=== PATIENT | female | born 1990 | race Caucasian/White ===

== ENCOUNTER 2022-11-30 15:02 | Outpatient (CLI) | payer OTHER, SELFPAY ==
--- NOTE | 2022-11-30 15:00 | CRLHL7_ITS ---
For Patients: As a result of the Cures Act, medical imaging exams and procedure reports are released immediately into your electronic medical record. You may view this report before your referring provider. If you have questions, please contact your health care provider. INDICATION: First trimester scan, establish dates. COMPARISON: None. TECHNIQUE: Real-time damon-scale imaging of the pelvis was performed. FINDINGS: Sonographic imaging demonstrates a single living intrauterine gestation. The embryo demonstrates a regular cardiac rate measuring 155 beats per minute. The embryo`s crown-rump length measurement of 1.3 cm corresponds to a gestational age of 7 weeks 4 days with a sonographic due date of July 15, 2023. There is a normal-appearing yolk sac measuring 3.0 mm. There are no gross abnormalities noted within the embryo at this early state of development. The placenta has not yet developed. The gestational sac has a normal appearance and there is no evidence of a perigestational hemorrhage. The amount of fluid within the sac appears appropriate for gestational age. The cervix is closed. The myometrium appears normal. The ovaries are of normal size. The right ovary measures 3.6 x 2.2 x 2.1 cm and contains a small corpus luteum cyst of . The left ovary measures 2.9 x 1.7 x 2.4 cm. There are no suspicious fluid collections noted in the cul-de-sac. IMPRESSION: Normal first trimester OB ultrasound exam. Gestational age calculated at 7 weeks 4 days with a sonographic due date of July 15, 2023. Dictated by Vinod Hull MD @ 11/30/2022 3:57:50 PM (Electronically Signed)
== END 2022-11-30 15:03 | disposition home or self-care (01) ==
LOC: US 15:03
PROVIDERS: PCP Obstetrics & Gynecology; Visit Provider Registered Nurse
DX: Z34.91 Encounter for supervision of normal pregnancy, unspecified, first trimester (principal); Z3A.08 8 weeks gestation of pregnancy
CPT/HCPCS: 76817

== ENCOUNTER 2022-11-30 15:21 | Outpatient (CLI) | payer OTHER, SELFPAY | END 2022-11-30 15:22 | disposition home or self-care (01) | PROVIDERS: PCP Obstetrics & Gynecology; Visit Provider Registered Nurse | DX: Z34.91 Encounter for supervision of normal pregnancy, unspecified, first trimester (principal); Z3A.08 8 weeks gestation of pregnancy | CPT/HCPCS: 86592; 86703; 86762; 86787; 86803; 86850; 86900; 86901; 87086; 87340; 87491; 87591 ==

== ENCOUNTER 2023-03-01 09:10 | Outpatient (CLI) | payer OTHER, SELFPAY ==
--- NOTE | 2023-03-01 09:15 | CRLHL7_ITS ---
For Patients: As a result of the Century Cures Act, medical imaging exams and procedure reports are released immediately into your electronic medical record. You may view this report before your referring provider. If you have questions, please contact your health care provider. INDICATION: Evaluate anatomy. COMPARISON: November 30, 2022 TECHNIQUE: Real time damon scale imaging of the fetus was performed. FINDINGS: Sonographic imaging demonstrates a single living intrauterine gestation. Fetus demonstrates a regular cardiac rate of 159 beats per minute. Fetus demonstrated multiple positions during the course of the study. The placenta lies posteriorly without evidence of placenta previa. Low lying placenta. The placental tip is 2.3 cm away from the internal cervical os which is closed. Amniotic fluid volume appears normal. Single deepest vertical pocket: 4.5 cm. The cervix is closed and measures 3.9 cm in length. The composite ultrasound gestational age is calculated at 20 weeks 2 days with an estimated sonographic due date of July 17, 2023. Appropriate growth and maturation in the interval. The estimated weight is 341 grams which lies at the 9.6 percentile. The following biometric measurements were obtained: Biparietal diameter: 4.6 cm/19 weeks 6 days 7% Head circumference: 17.7 cm/20 weeks 1 day 9% Abdominal circumference: 15.1 cm/20 weeks 2 days 18% Femur length: 3.3 cm/20 weeks 2 days 14% The HC/AC ratio measures: 1.8 range (1.07-1.25) On anatomic survey, there is a normal appearance of the cerebral ventricles, cisterna magna and cerebellum with the exception of an isolated choroid plexus cyst on the left measuring 6 x 3 x 4 mm. The nose, lips, and facial profile appear normal. The cervical, thoracic and lumbar spine are well visualized and appear normal. There is a normal four-chamber heart view and the left and right ventricular outflow tracts appear normal. diaphragm, stomach, kidneys and bladder appear normal. There is a normal three-vessel cord and cord insertion site. The four extremities appear normal. IMPRESSION: Normal OB ultrasound exam with concordance of clinical and sonographic dating. Appropriate growth and maturation in the interval. The baby`s measuring less than the 10th percentile. Please note there is a 6 x 3 x 4 mm left choroid plexus cyst. Please also note that the placenta is posteriorly located below lying with its tip 2.3 cm away from the internal cervical os which is closed. Dictated by Vinod Hull MD @ 03/01/2023 10:53:11 AM (Electronically Signed)
== END 2023-03-01 09:11 | disposition home or self-care (01) ==
LOC: US 09:11
PROVIDERS: Visit Provider Registered Nurse
DX: Z34.92 Encounter for supervision of normal pregnancy, unspecified, second trimester (principal); Z3A.20 20 weeks gestation of pregnancy
CPT/HCPCS: 76805; 76817

== ENCOUNTER 2023-03-29 08:09 | Outpatient (CLI) | payer OTHER, SELFPAY ==
--- NOTE | 2023-03-29 08:15 | CRLHL7_ITS ---
For Patients: As a result of the Cures Act, medical imaging exams and procedure reports are released immediately into your electronic medical record. You may view this report before your referring provider. If you have questions, please contact your health care provider. INDICATION: History of choroid plexus cyst, evaluate growth. COMPARISON: 03/01/2023 TECHNIQUE: Real time damon scale imaging of the fetus was performed. FINDINGS: Sonographic imaging demonstrates a single living intrauterine gestation. Fetus demonstrates a regular cardiac rate of 154 beats per minute. Fetus has a vertex position. The placenta lies posteriorly without evidence of placenta previa. Amniotic fluid volume appears normal and there is a single deepest vertical pocket: 4.4 cm. The estimated weight is 719gm which lies at the 21st %. On the prior OB ultrasound exam dated 03/01/2023 the estimated weight was at the 10th%. BPD 36th percentile. HC 21st percentile. AC 36th percentile. FL 11th percentile. The HC/AC ratio measures 1.12 range (1.04-1.22). IMPRESSION: Sonographic gestational age 24 weeks 5 days and sonographic due date 07/14/2023. Good correlation with dates. Normal interval growth. Dictated by Juan Pablo Hill MD @ 03/29/2023 10:58:45 AM (Electronically Signed)
== END 2023-03-29 08:10 | disposition home or self-care (01) ==
LOC: US 08:09
PROVIDERS: Visit Provider Obstetrics & Gynecology
DX: O36.5920 Maternal care for other known or suspected poor fetal growth, second trimester, not applicable or unspecified (principal); Z3A.24 24 weeks gestation of pregnancy
CPT/HCPCS: 76816

== ENCOUNTER 2023-04-26 08:20 | Outpatient (CLI) | payer OTHER, SELFPAY | END 2023-04-26 08:21 | disposition home or self-care (01) | LOC: NFLDREF 04-28 05:50 | PROVIDERS: Visit Provider Obstetrics & Gynecology | DX: Z34.93 Encounter for supervision of normal pregnancy, unspecified, third trimester (principal); Z3A.29 29 weeks gestation of pregnancy | CPT/HCPCS: 86592 ==

== ENCOUNTER 2023-05-10 02:57 | Outpatient (CLI) | payer OTHER, SELFPAY ==
[2023-05-10 03:15] VITALS: BP 100/62; PULSE 88
[2023-05-10 03:18] VITALS: TEMP 37
[2023-05-10] MEDS: ACETAMINOPHEN 500 MG TABLET 1000 MG PO (04:04)
[2023-05-10] MEDS: LOPERAMIDE HCL 2 MG CAPSULE PO (04:05)
[2023-05-10] MEDS: PROMETHAZINE 25 MG TABLET 12.5 MG PO (04:07)
--- NOTE | 2023-05-10 04:20 | PC.OBNST ---
NST Note NST Note Start: 05/10/23 02:16 Freq: ONCE Status: Active Protocol: Document 05/10/23 04:18 AM (Rec: 05/10/23 04:20 AM [id number]) NST Note 2 Para (# of births) 1 EDC 07/11/23 Gestational Age In Weeks & Days 31 Weeks & 1 Days Patient Presented with Complaint(s) of Other Other Complaints Nausea and Diarrhea x 2days Reactive Yes Appropriate for Gestational Age Yes NAM Driver RNC Date 05/10/23 Reactive Yes Appropriate for Gestational Age Yes NAM Trejo RN Date 05/10/23 OB NST charge Yes Complete NST Note via Write Note Yes The provider's electronic signature indicates the NST is reactive/appropriate for gestational age. *Note to provider: If an addendum is required, open the patient's chart and click on the note under the Nurse/Allied Health tab.
== END 2023-05-10 04:15 | disposition home or self-care (01) ==
LOC: OB OUT 02:58 → OB 03:00
PROVIDERS: Visit Provider Obstetrics & Gynecology
DX: O26.893 Other specified pregnancy related conditions, third trimester (principal); R19.7 Diarrhea, unspecified; R11.0 Nausea; Z3A.31 31 weeks gestation of pregnancy
CPT/HCPCS: 59025; 99213; A9270

== ENCOUNTER 2023-05-12 08:55 | Outpatient (CLI) | payer OTHER, SELFPAY ==
[2023-05-12 09:03] VITALS: PULSE 84; RESP 16; TEMP 36.8; O2SAT 99
[2023-05-12 09:06] VITALS: BP 106/68; PULSE 86
--- NOTE | 2023-05-12 10:10 | P.OBLDTN_ITS ---
OB - Triage/Final Diagnosis Visit Information Time Seen by Provider: 10:10 Date Seen: 05/12/23 Date of evaluation: 05/12/23 Narrative: The patient is a 32 year old 2 para 1001 at 31 weeks gestation, who presents with decreased movement and small amount of maroon-colored bleeding this morning. Beatriz states she woke up and when she went to the bathroom she noticed some maroon-colored blood on the tissue that she states was saturated and a small clot that she took a picture of in the toilet. Clot was approximately the size of a pea when looking at the picture. Patient was wearing a pad and there were 2, 3 cm spots of brown-colored blood on the pad. Since she arrived on the Center she has not had any bleeding. She states that she did have some vaginal itching and irritation last week and thinks she may have had a yeast infection. She has not had intercourse in the last 24-48 hours. She was seen in the Center triage on 05/10/2023 for nausea, vomiting and diarrhea. She denies contractions, dysuria, urinary frequency or urgency. She reports some tenderness of her abdomen in the right lower quadrant and mid suprapubic area with palpation but not offer abdominal pain as a concern until she was questioned and palpated. She denies feeling contractions but states that she has felt some ?tightening?. She has felt movement since arriving on the Center. Objective: Vital signs per her electronic medical record. General: Pleasant, , well groomed woman in no acute distress. Abdomen: Gravid, minimally tender to deep palpation over the mid suprapubic and right lower quadrant areas, no guarding or rebound. Contractions on the monitor palpate mild Pelvic: External genitalia, urethral meatus, Raemon's and Bartholin's glands all appear normal. A wet prep was obtained. On sterile speculum exam there is mucus mixed with maroon-colored blood coming from the cervical os. The cervix appears closed visually. Bimanual exam not performed. Assessment/Plan: 1. Decreased movement now resolved, status reassuring on NST. 2. Vaginal bleeding of unclear etiology * Await results of the wet prep * If the patient starts feeling more contractions a manual cervical exam will be performed. * fibronectin test will not be helpful in the case of a patient with vaginal bleeding. * If there is concern for labor in ultrasound for cervical length will be ordered. Evaluation Cervical dilation (cm): 0 Cervical effacement (%): 0 Laboratory results: Laboratory Tests 05/12/23 Range/Units 09:42 Vaginal Trichomonas Pending Vaginal Yeast Pending Vaginal Clue Cells Pending Vital signs: Vital Signs - 24 hr 05/12/23 09:03 05/12/23 09:03 05/12/23 09:06 Temperature 98.2 F Pulse Rate 86 Respiratory Rate 16 Blood Pressure 106/68 Pulse Oximetry 99 Fetus (Single) Heart Rate Baseline: 130 Rn Imaging Variability: Moderate (6-25) Monitor Accelerations: Present Monitor Decelerations: None Station: -4
[2023-05-12 10:15] LABS: Clue Cells No Clue Cells Seen (None Seen); Trichomonas No Trichomonas Seen (None Seen); Yeast Yeast Seen (None Seen)
== END 2023-05-12 10:38 | disposition home or self-care (01) ==
LOC: OB OUT 08:55 → OB 08:56
PROVIDERS: Visit Provider Obstetrics & Gynecology
DX: O36.8130 Decreased fetal movements, third trimester, not applicable or unspecified (principal); Z3A.31 31 weeks gestation of pregnancy
CPT/HCPCS: 59025; 87210; 99213

== ENCOUNTER 2023-05-17 09:21 | Outpatient (CLI) | payer OTHER, SELFPAY ==
--- NOTE | 2023-05-17 09:15 | CRLHL7_ITS ---
For Patients: As a result of the Cures Act, medical imaging exams and procedure reports are released immediately into your electronic medical record. You may view this report before your referring provider. If you have questions, please contact your health care provider. INDICATION: Third trimester scan, evaluate growth. COMPARISON: 03/29/2023 TECHNIQUE: Real time damon scale imaging of the fetus was performed. FINDINGS: Sonographic imaging demonstrates a single living intrauterine gestation. Fetus demonstrates a regular cardiac rate of 154 beats per minute. Fetus has a vertex position. The placenta lies posteriorly. Amniotic fluid volume appears normal and there is a single deepest vertical pocket: 3.6 cm. The estimated weight is 1165gm which lies at the 12th %. On the prior OB ultrasound exam dated 03/29/2023 the estimated weight was at the 21st%. BPD 13th percentile. HC 7th percentile. AC 17th percentile. FL 11th percentile. The HC/AC ratio measures 1.07 range (0.96-1.17). IMPRESSION: Sonographic gestational age 31 weeks 1 day and sonographic due date of 07/18/2023. Sonographic age 1 week behind the clinical age. Estimated weight 12th percentile. Abdominal circumference 17th percentile. Dictated by Juan Pablo Hill MD @ 05/17/2023 10:38:18 AM (Electronically Signed)
== END 2023-05-17 09:22 | disposition home or self-care (01) ==
LOC: US 09:22
PROVIDERS: Visit Provider Obstetrics & Gynecology
DX: Z34.93 Encounter for supervision of normal pregnancy, unspecified, third trimester (principal); Z3A.31 31 weeks gestation of pregnancy
CPT/HCPCS: 76816

== ENCOUNTER 2023-06-15 08:00 | Outpatient (RCR) | payer OTHER, SELFPAY | END 2023-07-12 13:16 | disposition home or self-care (01) | PROVIDERS: PCP Obstetrics & Gynecology; Visit Provider Obstetrics & Gynecology | DX: O99.891 Other specified diseases and conditions complicating pregnancy (principal); M54.9 Dorsalgia, unspecified; M54.6 Pain in thoracic spine; R29.898 Other symptoms and signs involving the musculoskeletal system; Z51.89 Encounter for other specified aftercare | CPT/HCPCS: 97110; 97140; 97161; 97530 ==

== ENCOUNTER 2023-06-17 09:05 | Outpatient (CLI) | payer OTHER, SELFPAY ==
[2023-06-18 11:12] LABS: Strep B DNA Probe Negative (Negative)
[2023-06-18 11:19] LABS: Strep B Susceptibility Needed? No
== END 2023-06-17 09:06 | disposition home or self-care (01) ==
LOC: NFLDREF 09:07
PROVIDERS: Visit Provider Obstetrics & Gynecology
DX: Z34.83 Encounter for supervision of other normal pregnancy, third trimester (principal)
CPT/HCPCS: 87081; 87653

== ENCOUNTER 2023-07-04 02:54 | Inpatient (IN) | payer OTHER, SELFPAY ==
[2023-07-04] VITALS (23 sets, daily range): BP systolic 92–183; BP diastolic 50–127; PULSE 69–179; RESP 16–18; TEMP 36.6–36.9; O2SAT 96–100; BMI 29.0
--- OUTSIDE RECORDS SUMMARY | 2023-07-04 02:31 | XMS_ITS | Referral Summary ---
Author Name Unknown Organization [facility] Address [facility] [place] [address] Care Team Providers Care Food Manager Name Role Phone No Ref-Primary, Physician Primary Care Provider Thelma Veloz MD Unavailable [phone] Social History Tobacco Use Types Packs/Day Years Used Date Smoking Tobacco: Never Assessed Tobacco Cessation:Counseling Given: Not Answered Adolescent Education Answer Date Record ed Getting School Help Needed Not on file 03/02 Estimated Date of Delivery Comme nts Yes 07/11/2023 Based on last me nstrual period of 10/04/2022 Sex and Gender Information Value Date Recorded Sex Assigned at Not on file Gender Identity Not on file Sexual Orientation Not on file Plan of Treatment Not on file Care Teams Food Manager Relationship Specialty Start Date End Date No Ref-Primary, Physician PCP - General 03/01/23 Thelma Veloz MD [address] [facility] [address] [place] [address] Assigned OBGYN Provider 03/12/23
--- OUTSIDE RECORDS SUMMARY | 2023-07-04 02:31 | XMS_ITS | Encounter Summary ---
Author Name Unknown Organization [facility] Address [address] [place] [id number] Care Team Providers Care Documentation Designer Name Role Phone No Ref-Primary, Physician Primary Care Provider Reason for Referral * Consultation (Routine: Next available opening) - Pending Review Specialty Diagnoses / Procedures Referred By Contac t Referred To Contact Diagnoses related condition Ananya Wagner MD [address] [place] [id number] [facility] [address] [place] [address] Referral ID Status Reason Start Date Expiration Date V isits Requested Visits Authorized [id number] Pending Review 03/01/2023 02/29/2024 1 1 Question Answer Preferred Location: [facility] - [place] GUILLERMO 07/11/2023 Ultrasound Comprehensive US (>than 18 weeks GA) US PROC NONE MFM Issue OTHER (enter details in Comments) - Suspected poor growth MFM Consultation (unrelated to Ultrasound findings): Yes fax Ananya Wagner, [facility], Comments There is no height or weight on file to calculate BMI. >> Patient may proceed with recommendations for further testing as directed by the Maternal Medicine Specialist >> >> If requesting Echo: MFM will determine appropriate location for exam due to indication. >> If requesting Lung Maturity Amnio: If results indicate lung maturity, induction or C/S is recommended within 36 hours. Please schedule accordingly. Please be aware that coverage of these services is subject to the terms and limitations of your health insurance plan. Call member services at your health plan with any benefit or coverage questions. Encounter Details Date Type Department Care Team (Latest Contact Info) Description 03/01/2023 Transcribe Orders [facility] [place] [address] [facility] [address] [place] [id number] Ananya Wagner MD [address] [place] [address] related condition (Primary Dx) Social History Tobacco Use Types Packs/Day Years Used Date Smoking Tobacco: Never Assessed Adolescent Education Answer Date Record ed Getting School Help Needed Not on file 03/02 Sex and Gender Information Value Date Recorded Sex Assigned at Not on file Gender Identity Not on file Sexual Orientation Not on file documented as of this encounter Plan of Treatment Scheduled Referrals Name Type Priority Associated Diagnoses Orde r Schedule [facility]tr Referral - Referral Routine: Next available opening related condition Expected: 03/01/2023 (Approximate), Expires: 08/28/2023 documented as of this encounter Visit Diagnoses Diagnosis related condition- Primary Unspecified complication of , unspecified as to episode of care documented in this encounter Care Teams Documentation Designer Relationship Specialty Start Date End Date No Ref-Primary, Physician PCP - General 03/01/23 documented as of this encounter
--- OUTSIDE RECORDS SUMMARY | 2023-07-04 02:31 | XMS_ITS | Encounter Summary ---
Author Name Unknown Organization [facility] Address [address] [place] [address] Care Team Providers Care Bias Binding Folder Name Role Phone No Ref-Primary, Physician Primary Care Provider Reason for Referral * Diagnostic Imaging Ultrasound (Routine) - Pending Review Specialty Diagnoses / Procedures Referred By Contac t Referred To Contact Radiology. Diagnoses related condition Procedures [facility] Comprehensive Ananya Cavazos MD [address] [place] [address] Referral ID Status Reason Start Date Expiration Date V isits Requested Visits Authorized [id number] Pending Review 03/01/2023 02/29/2024 1 1 Reason for Visit * Diagnostic Imaging Ultrasound (Routine) - Pending Review Specialty Diagnoses / Procedures Referred By Contac t Referred To Contact Radiology. Diagnoses related condition Procedures [facility] Ananya Scott MD [address] [place] [address] Referral ID Status Reason Start Date Expiration Date V isits Requested Visits Authorized [id number] Pending Review 03/01/2023 02/29/2024 1 1 Encounter Details Date Type Department Care Team (Latest Contact Info) Description 03/07/2023 11:28 AM CDT - 03/07/2023 11:59 PM CDT Hospital Encounter [facility] [place] [address] [place] [address] Ananya Ruelas MD [address] [place] [address] Thelma Veloz MD [address] [place] [address] related condition Discharge Disposition: Home or Self Care Social History Tobacco Use Types Packs/Day Years [...] as of this encounter Plan of Treatment Not on file documented as of this encounter Procedures Procedure Name Priority Date/Time Associated Diagnosis Comments [facility] US COMPREHENSIVE SINGLE Routine 03/07/2023 12:13 PM CDT related condition documented in this encounter Results * [facility] US Comprehensive Single (03/07/2023 12:13 PM CDT) Anatomical Region Laterality Modality Ultrasound 03/07/2023 11:2 4 AM CDT Impressions 03/07/2023 12:43 PM CDT IMPRESSION ----- 1. Reeder intrauterine at 22w 0d gestational age here for evaluation of anatomy. 2. No anomalies commonly detected by ultrasound or soft markers of aneuploidy were identified in the detailed anatomic survey within the limits of ultrasound. 3. Growth parameters and estimated weight were consistent with established dates. 4. The amniotic fluid volume appeared normal. 5. On transabdominal imaging the cervix appears long and closed. Narrative 03/07/2023 12:43 PM CDT ?Comprehensive ----- Pat. Name: BEATRIZ BONDS ? Study Date: ??03/07/2023 11:24am Pat. NO: ??[id number] ?Referring ??MD: ANANYA RUELAS Site: [facility] Cloth Shrinking Supervisor: Libby Yates RDMS : ??1990 ?Age: ?? 32 ----- INDICATION ----- Left choroid plexus cyst and measuring small on outside US METHOD ----- Transabdominal ultrasound examination. View: Sufficient ----- Reeder . Number of fetuses: 1 DATING ----- ? Date ?Details ?Gest. age ?GUILLERMO LMP ?10/04/2022 ? 22 w + 0 d ? 07/11/2023 Prior assessment ? 11/30/2022 ? GA: 7 w + 4 d ?21 w + 3 d ? 07/15/2023 U/S ? 03/07/2023 ? based upon AC, BPD, Femur, HC ?21 w + 3 d ? 07/15/2023 Assigned dating ?Dating performed on 03/07/2023, based on the LMP ?22 w + 0 d ? 07/11/2023 GENERAL EVALUATION ----- Cardiac activity present. FHR 147 bpm. movements present. Presentation cephalic. Placenta Posterior, No Previa, > 2 cm from internal os. Umbilical cord Cord vessels: 3 vessel cord. Amniotic fluid Amount of AF: normal. MVP 4.7 cm. BIOMETRY ----- Main Biometry: BPD ?49.8 ?mm ? 21w 1d ?Hadlock OFD ?65.8 ?mm ? 20w 5d ?Nicolaides HC ?186.2 ?mm ?21w 0d ?Hadlock Cerebellum tr ?23.1 ? mm ?21w 4d ?Nicolaides AC ?174.3 ?mm ?22w 3d ?54% ?Hadlock Femur ?35.8 ? mm ?21w 2d ?Hadlock Humerus ?34.6 ?mm ? 21w 6d ?[place] Weight Calculation: EFW ? 450 ? g ? 33% ?Hadlock EFW (lb,oz) ? 1 lb 0 ?oz EFW by ?Hadlock ([id number]) Head / Face / Neck Biometry: Crack Off Person ? 5.8 ? mm CM ?5.5 ? mm Nasal bone ? 6.4 ? mm ANATOMY ----- The following structures appear normal: Head / Neck ? Cranium. Head size. Head shape. Lateral ventricles. Choroid plexus. Midline falx. Cavum septi pellucidi. Cerebellum. Cisterna magna. ? Parenchyma. Thalami. Vermis. ? Neck. Nuchal fold. Face ? Lips. Profile. Nose. Maxilla. Mandible. Orbits. Lens. Heart / Thorax ?4-chamber view. RVOT view. LVOT view. Situs. Aortic arch view. Bicaval view. Ductal arch view. Superior vena cava. Inferior vena cava. 3-vessel ? view. 3-pwtlnw-ltoptjc view. Cardiac position. Cardiac size. Cardiac rhythm. ? Right lung. Left lung. Diaphragm. Abdomen ? Abdominal wall. Cord insertion. Stomach. Kidneys. Bladder. Liver. Bowel. Genitals. Spine ?Cervical spine. Thoracic spine. Lumbar spine. Sacral spine. Extremities / Skeleton ?Right arm. Right hand. Left arm. Left hand. Right leg. Right foot. Left leg. Left foot. Gender: male. MATERNAL STRUCTURES ----- Cervix ?Visualized ? Appearance: Appears Closed ? Cervical length 47.4 mm Right Ovary ?Visualized Left Ovary ?Visualized RECOMMENDATION ----- Thank-you for referring your patient for a comprehensive ultrasound. I discussed the findings on today's ultrasound with the patient. I reviewed the limitations of ultrasound both in detecting aneuploidy and structural abnormalities. Ultrasound can routinely detect 80-90% of structural abnormalities. She had low risk cell free DNA for genetic screening this . Although not visualized today a choroid plexus cyst (WOOL MIXER) had been noted on outside ultrasound. I provided them reassurance and discussed that CPCs are seen in 1-2% of all pregnancies in the second trimester and can be single or multiple, unilateral or bilateral and are often small (<1cm) in diameter. In the absence of other anatomic abnormalities or soft markers in conjunction with her low risk cell free DNA result this is considered to be a normal finding. Finally, we discussed that CPCs are not considered a structural or functional brain abnormality and therefore have no impact on structural brain development or function. Specifically, there is no association with neurodevelopmental outcomes. Almost all resolve by 28 weeks and they do not require any follow-up or postnatally. Further ultrasound studies as clinically indicated. Return to primary provider for continued care. If you have questions regarding today's evaluation or if we can be of further service, please contact the [facility]. anomalies may be present but not detected I spent a total of 15 minutes on the date of this encounter including preparing to see the patient (reviewing medical records/tests), counseling and discussing the plan of care, documenting the visit in the electronic medical record, and communicating with other health respiratory care technician and/or care coordination. Please see note for details. Procedure Note Thelma Veloz MD - 03/07/2023 Comprehensive ----- Pat. Name: BEATRIZ BONDS Study Date: 03/07/2023 11:24am Pat. NO: [id number] Referring MD: ANANYA RUELAS Site: [facility] Cloth Shrinking Supervisor: Libby Yates RDMS : 1990 Age: 32 ----- INDICATION ----- Left choroid plexus cyst and measuring small on outside US METHOD ----- Transabdominal ultrasound examination. View: Sufficient ----- Reeder . Number of fetuses: 1 DATING ----- DateDetailsGest. age GUILLERMO LMP w + 0 d 07/11/2023 Prior assessment 11/30/2022 GA: 7 w +4 d21 w + 3 d 07/15/2023 U/S 03/07/2023ased upon AC, BPD, Femur, HC21 w + 3 d 07/15/2023 Assigned dating Dating performed on 03/07/2023, based onthe LMP 22 w +0 d 07/11/2023 GENERAL EVALUATION ----- Cardiac activity present. FHR 147 bpm. movements present. Presentation cephalic. Placenta Posterior, No Previa, > 2 cm from internal os. Umbilical cord Cord vessels: 3 vessel cord. Amniotic fluid Amount of AF: normal. MVP 4.7 cm. BIOMETRY ----- Main Biometry: BPD 49.8 mm21w 1d Hadlock OFD 65.8 mm20w 5d Nicolaides HC 186.2 mm21w 0d Hadlock Cerebellum tr 23.1 mm21w 4d Nicolaides AC 174.3 mm22w 3d 54% Hadlock Femur 35.8 mm21w 2d Hadlock Humerus 34.6 mm21w 6d [place] Weight Calculation: EFW 450 g33% Hadlock EFW (lb,oz) 1 lb 0 oz EFW by Hadlock ([id number]) Head / Face / Neck Biometry: Crack Off Person 5.8 mm CM 5.5 mm Nasal bone 6.4 mm ANATOMY ----- The following structures appear normal: Head / Neck Cranium. Head size. Head shape.Lateral ventricles. Choroid plexus. Midline falx. Cavum septi pellucidi.Cerebellum. Cisterna magna. Parenchyma. Thalami. Vermis. Neck. Nuchal fold. Face Lips. Profile. Nose. Maxilla.Mandible. Orbits. Lens. Heart / Thorax 4-chamber view. RVOT view. LVOT view.Situs. Aortic arch view. Bicaval view. Ductal arch view. Superior venacava. Inferior vena cava. 3-vessel view. 4-pyqzgn-fwbrsip view.Cardiac position. Cardiac size. Cardiac rhythm. Right lung. Left lung.Diaphragm. Abdomen Abdominal wall. Cord insertion.Stomach. Kidneys. Bladder. Liver. Bowel. Genitals. Spine Cervical spine. Thoracic spine.Lumbar spine. Sacral spine. Extremities / Skeleton Right arm. Right hand. Left arm. Lefthand. Right leg. Right foot. Left leg. Left foot. Gender: male. MATERNAL STRUCTURES ----- Cervix Visualized Appearance: Appears Closed Cervical length 47.4 mm Right Ovary Visualized Left Ovary Visualized RECOMMENDATION ----- Thank-you for referring your patient for a comprehensive ultrasound. I discussed the findings on today's ultrasound with the patient. Ireviewed the limitations of ultrasound both in detecting aneuploidy andstructural abnormalities. Ultrasound can routinely detect 80-90% of structural abnormalities. She had low riskcell free DNA for genetic screening this . Although not visualized today a choroid plexus cyst (WOOL MIXER) had been notedon outside ultrasound. I provided them reassurance and discussed that CPCsare seen in 1-2% of all pregnancies in the second trimester and can be single or multiple,unilateral or bilateral and are often small (<1cm) in diameter. In theabsence of other anatomic abnormalities or soft markers in conjunction with her low risk cell freefetal DNA result this is considered to be a normal finding. Finally, wediscussed that CPCs are not considered a structural or functional brain abnormality and therefore haveno impact on structural brain development or function. Specifically, thereis no association with neurodevelopmental outcomes. Almost all resolve by 28 weeks and they donot require any follow-up or postnatally. Further ultrasound studies as clinically indicated. Return to primary provider for continued care. If you have questions regarding today's evaluation or if we can be offurther service, please contact the [facility]. anomalies may be present but not detected I spent a total of 15 minutes on the date of this encounter includingpreparing to see the patient (reviewing medical records/tests), counselingand discussing the plan of care, documenting the visit in the electronic medical record, andcommunicating with other health respiratory care technician and/or carecoordination. Please see note for details. IMPRESSION ----- 1. Reeder intrauterine at 22w 0d gestational age here forevaluation of anatomy. 2. No anomalies commonly detected by ultrasound or soft markers ofaneuploidy were identified in the detailed anatomic survey withinthe limits of ultrasound. 3. Growth parameters and estimated weight were consistent withestablished dates. 4. The amniotic fluid volume appeared normal. 5. On transabdominal imaging the cervix appears long and closed. Ananya Ruelas MD [facility] US O LILA documented in this encounter Visit Diagnoses Diagnosis related condition Unspecified complication of , unspecified as to episode of care documented in this encounter Care Teams Bias Binding Folder Relationship Specialty Start Date End Date No Ref-Primary, Physician PCP - General 03/01/23 documented as of this encounter
--- OUTSIDE RECORDS SUMMARY | 2023-07-04 02:31 | XMS_ITS | Encounter Summary ---
Author Name Unknown Organization [facility] Address [address] [facility] [place] [address] Care Team Providers Care Investigations Manager Name Role Phone No Ref-Primary, Physician Primary Care Provider Reason for Visit * Reason Comments Ultrasound L2-FGR outside US Encounter Details Date Type Department Care Team (Late st Contact Info) Description 03/07/2023 12:15 PM CDT Office Visit [facility] [place] [address] [facility] [address] [place] [address] Ananya Olguin MD [address] [place] [address] Thelma Veloz MD [address] [place] [address] [address] [place] [address] Suspected anomaly, antepartum, single or unspecified fetus (Primary Dx) Social History Tobacco Use Types [...] on file documented as of this encounter Progress Notes * Thelma Veloz MD - 03/07/2023 12:15 PM CDT The patient was seen for an ultrasound in the [facility] at the [facility] today. For a detailed report of the ultrasound examination, please see the ultrasound report which can be found under the imaging tab. If you have questions regarding today's evaluation or if we can be of further service, please contact the [facility]. Thelma Veloz MD Clinical Assistant, [facility] [phone] (Pager) documented in this encounter Plan of Treatment Not on file documented as of this encounter Visit Diagnoses Diagnosis Suspected anomaly, antepartum, single or unspecified fetus- Primary documented in this encounter Care Teams Investigations Manager Relationship Specialty Start Date End Date No Ref-Primary, Physician PCP - General 03/01/23 documented as of this encounter
--- OUTSIDE RECORDS SUMMARY | 2023-07-04 02:31 | XMS_ITS | Encounter Summary ---
Author Name Unknown Organization [facility] Address [address] [place] [address] Care Team Providers Care Embedded Engineer Name Role Phone No Ref-Primary, Physician Primary Care Provider Reason for Referral * Diagnostic Imaging Ultrasound (Routine) - Pending Review Specialty Diagnoses / Procedures Referred By Contac t Referred To Contact Radiology. Diagnoses related condition Procedures [facility] US Comprehensive Single Ananya Ruelas MD [address] [place] [address] Referral ID Status Reason Start Date Expiration Date V isits Requested Visits Authorized [id number] Pending Review 03/01/2023 02/29/2024 1 1 Encounter Details Date Type Department Care Team (Latest Contact Info) Description 03/01/2023 Transcribe Orders [facility] [place] [address] [facility] [address] [place] [phone] Ananya Ruelas MD [address] [place] [address] related condition (Primary Dx) Social History Tobacco [...] on file documented as of this encounter Results * M US Comprehensive Single (03/07/2023 12:13 PM CDT) [...] ? Study Date: ??03/07/2023 11:24am Pat. NO: ??[id number] ?Referring ??MD: ANANYA RUELAS Site: [facility] ? [employer] Senior Sergeant: Libby Yates RDMS : ??1990 ?Age: ?? [...] 1 lb 0 ?oz EFW by ?Hadlock ([id number]) Head / Face / Neck Biometry: Undergraduate Intern ? 5.8 ? mm CM ?5.5 ? [...] cava. Inferior vena cava. 3-vessel ? view. 0-iqogdh-zcpoeqk view. Cardiac position. Cardiac size. Cardiac rhythm. [...] not visualized today a choroid plexus cyst (MANAGER UNION) had been noted on outside ultrasound. I [...] medical record, and communicating with other health patient care coordinator and/or care coordination. Please see note for details. Procedure Note Thelma Veloz MD - 03/07/2023 Comprehensive ----- Pat. Name: BEATRIZ BONDS Study Date: 03/07/2023 11:24am Pat. NO: [id number] Referring MD: ANANYA RUELAS Site: [facility] [employer] Art[employer] Senior Sergeant: Libby Yates RDMS : 1990 Age: 32 [...] 1 lb 0 oz EFW by Hadlock ([id number]) Head / Face / Neck Biometry: Undergraduate Intern 5.8 mm CM 5.5 mm Nasal bone [...] Superior venacava. Inferior vena cava. 3-vessel view. 4-hshfdv-vjhdopr view.Cardiac position. Cardiac size. Cardiac rhythm. Right [...] not visualized today a choroid plexus cyst (MANAGER UNION) had been notedon outside ultrasound. I provided [...] electronic medical record, andcommunicating with other health patient care coordinator and/or carecoordination. Please see note for details. [...] appears long and closed. Ananya Ruelas MD IMG [facility] US O RDERABLES documented in this encounter Visit Diagnoses Diagnosis related condition- Primary Unspecified complication of , unspecified as to episode of care related condition Unspecified complication of , unspecified as to episode of care documented in this encounter Care Teams Embedded Engineer Relationship Specialty Start Date End Date No Ref-Primary, Physician PCP - General 03/01/23 documented as of this encounter
--- OUTSIDE RECORDS SUMMARY | 2023-07-04 02:31 | XMS_ITS | Encounter Summary ---
Author Name Unknown Organization [facility] Address [address] [place] [address]. [place] [address] Care Team Providers Care Environmental Science Professor Name Role Phone No Ref-Primary, Physician Primary Care Provider Encounter Details Date Type Department Care Team (Late st Contact Info) Description 03/01/2023 Medical Correspondence [facility] [address] [place] [address] [place] [address] Outside, Provider Social History Tobacco Use Types Packs/Day Years [...] documented as of this encounter Visit Diagnoses Not on filedocumented in this encounter Care Teams Environmental Science Professor Relationship Specialty Start Date End Date No Ref-Primary, Physician PCP - General 03/01/23 documented as of this encounter
--- OUTSIDE RECORDS SUMMARY | 2023-07-04 02:31 | XMS_ITS | Encounter Summary ---
Author Name Unknown Organization [facility] Address [address] [place] [address] Care Team Providers Care Appraiser Art Name Role Phone No Ref-Primary, Physician Primary Care Provider Reason for Visit * Reason Comments Ultrasound L2-IUGR Encounter Details Date Type Department Care Team (Late st Contact Info) Description 03/02/[address] [facility] [place] [address] [facility] [address] [place] [phone] Jennifer Linares, NAM Ultrasound (L2-IUGR) Social History Tobacco Use Types Packs/Day Years [...] on filedocumented in this encounter Care Teams Appraiser Art Relationship Specialty Start Date End Date No Ref-Primary, Physician PCP - General 03/01/23 documented as of this encounter
--- OUTSIDE RECORDS SUMMARY | 2023-07-04 02:31 | XMS_ITS | Encounter Summary ---
Author Name Unknown Organization [facility] Address [address] [place] [address] Care Team Providers Care Wind Turbine Technician Name Role Phone No Ref-Primary, Physician Primary Care Provider Encounter Details Date Type Department Care Team (Latest Contact Info) Description 03/07/2023 Travel Social History Tobacco Use Types Packs/Day Years [...] on filedocumented in this encounter Care Teams Wind Turbine Technician Relationship Specialty Start Date End Date No Ref-Primary, Physician PCP - General 03/01/23 documented as of this encounter
--- OUTSIDE RECORDS SUMMARY | 2023-07-04 02:31 | XMS_ITS | Clinical Summary ---
Author Name Unknown Organization [facility] Address [address] [place] [address] Care Team Providers Care Face Burler Name Role Phone No Ref-Primary, Physician Primary Care Provider Thelma Veloz MD Unavailable [phone] Social History Tobacco Use Types Packs/Day Years [...] Orientation Not on file Plan of Treatment Health Maintenance Due Date Last Done Comments ADVANCE CARE PLANNING 1990 ANNUAL REVIEW OF HM ORDERS 1991 YEARLY PREVENTIVE VISIT 1990 COVID-19 Vaccine (#1) 1991 HIV SCREENING 2006 HEPATITIS C SCREENING 2009 PAP 2012 MATERNAL SCREENING DISCUSSION 12/13/2022 INFLUENZA VACCINE (#1) 2023 OBGCT (OB) 03/21/2023 PHQ-2 (once per calendar year) 2023 GROUP B STREP SCREENING 06/13/2023 DTAP/TDAP/TD IMMUNIZATION (10 - Td or Tdap) 04/26/2033 04/26/2023, 05/25/2021, 05/08/2014, Additional history exists IPV IMMUNIZATION Completed 09/25/1996, , 1991, Additional history exists HEPATITIS B IMMUNIZATION Completed 004, 01/23/2003, 12/18/2002 HPV IMMUNIZATION Aged Out No longer e ligible based on patient's age to complete this topic MENINGITIS IMMUNIZATION Aged Out No l onger eligible based on patient's age to complete this topic Pneumococcal Vaccine: Pediatrics (0 to 5 Years) and At-Risk Patients (6 to 64 Years) Aged Out No longer eligible based on patient's age to complete this topic RSV MONOCLONAL ANTIBODY Aged Out No l onger eligible based on patient's age to complete this topic RSV VACCINE ( & 60+) (No Doses Required) Completed Care Teams Face Burler Relationship Specialty Start Date End Date No Ref-Primary, Physician PCP - General 03/01/23 Thelma Veloz MD [address] [facility] [address] [place] [address] Assigned OBGYN Provider 03/12/23
--- OUTSIDE RECORDS SUMMARY | 2023-07-04 02:31 | XMS_ITS | Clinical Summary ---
Author Name Unknown Organization [facility] Address [place], [place] [address] Care Team Providers Care Hot Car Operator Name Role Phone Carlos Lara MD Primary Care Provider Allergies Active Allergy Reactions Criticality Noted Date Comments Egg Diarrhea 03/17/2020 Azithromycin Rash 10/09/2008 Medications Medication Sig Dispensed Refills Start Date End Date Status calcium carbonate (TUMS) 200 mg calcium (500 mg) chewable tablet Take by mouth one time if needed. 0 Active multivitamin () 27 mg iron- 800 mcg folic Take 1 Tablet by mouth once daily with a meal. 0 04/02/2021 Active Active Problems No known active problems Immunizations Name Administration Dates Next Due DTaP 09/25/1996, 3,1991,1991,1991 HIB HbOC (HibTITER) 09/04/1992,1991,1991,1991 Hepatitis B (Peds) 07/19/2003,01/23/2003, 003 Inactivated Polio Vaccine 09/25/1996,09/04/1992, 1991,1991 MMR 12/18/2002,09/04/1992 Tdap 05/08/2014,07/19/2003 Family History Medical History Relation Name Comments Good Health Brother 1 Good Health Brother 2 Good Health Father No Known Problems Maternal Grandfather Heart failure Maternal Grandmother Endometrial cancer Mother No Known Problems Paternal Grandfather No Known Problems Paternal Grandmother Relation Name Status Comments Brother 1 Alive Brother 2 Alive Father Alive Maternal Grandfather Alive Maternal Grandmother Alive Mother Alive Paternal Grandfather Alive Paternal Grandmother Alive Social History Tobacco Use Types Packs/Day Years Used Date Smoking Tobacco: Never Smokeless Tobacco: Never Alcohol Use Standard Drinks/Week Comments Yes 0 (1 standard drink = 0.6 oz pur e alcohol) PHQ-2 Answer Date Recorded PHQ-2 TOTAL SCORE 0 03/17/2020 Social Connections Answer Date Recorded Frequency of Communication with Friends and Fami ly Not on file 05/16/2021 Financial Resource Strain Answer Date R ecorded Difficulty of Paying Living Expenses Not on file 05/16/2021 Difficulty of Paying Living Expenses Not on file 05/16/2021 Sex and Gender Information Value Date Recorded Sex Assigned at Not on file Gender Identity Not on file Sexual Orientation Not on file Obstetrics History Para Term AB IAB SAB Ectopic Multiple Livin g Live Births 1 Date Outcome GA Total Labor Labor/2nd/3rd Weight Sex Delivery Anes PTL Rosa M A1 A5 Name Cl in Last Filed Vital Signs Vital Sign Reading Time Taken Comments Blood Pressure 119/82 03/05/2022 5:56 PM CDT Pulse 90 03/05/2022 5:56 PM CDT Temperature 36.9 ??C (98.4 ??F) 03/05/2022 5:56 PM CD T Respiratory Rate 18 03/05/2022 5:56 PM CDT Oxygen Saturation 99% 03/05/2022 5:56 PM CDT Inhaled Oxygen Concentration - - Weight 61.7 kg (136 lb) 10/10/2021 11:00 AM CDT Height 151.1 cm (4' 11.5) 09/30/2020 10:02 AM C DT Body Mass Index 27.01 09/30/2020 10:02 AM CDT Plan of Treatment Health Maintenance Due Date Last Done Comments COVID-19 vaccine series (#1) 1991 HIV for age 15-65 2006 Hepatitis C screening for ag e 18-79 2009 Depression screening for age 12+ 03/17/2021 03/17/2020 BMI (ht and wt on same day) for age 18+ 09/30/2021 09/30/2020, 02/27/2020, 05/11/2019 Influenza for age 9-49 01/14/2023 Pap test for age 21-65 12/31/2023 12/30/2020 Tetanus booster 05/08/2024 05/08/2014, 07/19/2003 Tdap Completed 05/08/2014, 07/19/2003 Pneumococcal series for age 6-64 Aged Out No longer eligible b ased on patient's age to complete this topic Care Teams Hot Car Operator Relationship Specialty Start Date End Date Carlos Lara MD PCP - General 10/09/08
--- NOTE | 2023-07-04 03:51 | W.PM.LDBA ---
Subjective History of Present Illness Narrative: Patient is being admitted to Labor and Delivery in labor for delivery. She is a 33 year old at 39 0/7 weeks gestation. Her full history and physical was dictated by Dr. JIMENES on 06/21/23. Please see this for details. Specific Issues/Plans G 2 P 1001 It's a BOY!! H&P by YUDY 06/21/23 1. Nausea in . No vomiting. -B6 and Unisom not helpful. Zofran q6hr helping. Dealt with nausea entire last . 2. GERD -Omeprazole ordered 3. FAS: -EFW: <10th percentile, choroid plexus cyst noted. [id number] previously completed and low risk -[facility] referral 03/07/2023: Posterior placenta not previa, three-vessel umbilical cord, single deepest pocket of amniotic fluid 4.7 cm. EFW: 33%, no choroid plexus cyst identified. Normal anatomy. -Growth US at 24 weeks ordered on 03/01/23: Normal growth EFW: 21%. -Growth US at 32-36 weeks: Cephalic, SD P 3.6 cm, EFW 1685 g = 12%. AC 17%. 4. Suspected COVID infection at around 28 weeks 5. Vaginal spotting at 31 weeks. Normal US 05/17/23. COVID: Not vaccinated. Recommended. Reviewed risks of COVID infection during . Flu: Tdap: 04/26/23 RSV: Declines OB - Problem Based A/P Additional Plan (1) : Status: Acute Plan 1. Expectant management of labor. 2. GBS negative no need for antibiotic prophylaxis. 3. Coping well with labor, would like to try nitrous at the moment. OB Exam Physical Exam Vital signs: Pulse BP 94 121/80 07/04/23 02:43 07/04/23 02:43 Detailed Labor and Delivery Exam Patient Gravid: Yes Dilation (cm): 6 Effacement (%): 90 Cervix position: mid Consistency: soft Tachysystole: No Contraction intensity: Strong/Firm Fetus (Single) Station: -1 Amniotic Membrane Status: intact Heart Rate Baseline: 135 Monitor Accelerations: Present Monitor Decelerations: None Quality Control Technician Variability: Moderate (6-25)
[2023-07-04] MEDS: LACTATED RINGERS 1000 ML 1,000 ML 900 ML IV (04:29)
[2023-07-04] MEDS: fentaNYL 100 MCG/2 ML inj 25 MCG INTRATHECA (05:10)
--- NOTE | 2023-07-04 05:16 | P.ANBPRC_ITS ---
PFSH PFS Medical History No pertinent past medical history ?Z78.9 - Other specified health status (ICD-10) Surgical History H/O wisdom tooth extraction (2009) ?K08.409 - Partial loss of teeth, unspecified cause, unspecified class (ICD- 10) H/O knee surgery (2013) ?Z98.890 - Other specified postprocedural states (ICD-10) Family History Maternal Grandmother CHF (congestive heart failure) Mother Uterine cancer, Onset Age: 54 Social History Narrative: , [id number] mom, 1 child No regular exercise but active lifestyle Lifetime nonsmoker Rare alcohol use Smoking Status: Never smoker Little interest or pleasure in doing things: several days Feeling down, depressed, or hopeless: not at all Meds Home Medications and Allergies Home Medications Medication Instructions Recorded Confirmed Type docosahexaenoic acid 200 mg 200 mg PO DAILY 09/24/22 07/04/23 History capsule ( DHA) acetaminophen 500 mg tablet 1,000 mg PO Q6H PRN 01/26/23 07/04/23 History (Tylenol Extra Strength) doxylamine succinate 25 mg tablet 25 mg PO QHS PRN 03/29/23 07/04/23 History (Unisom (doxylamine)) ferrous sulfate 325 mg (65 mg 325 mg PO QDAY 06/21/23 07/04/23 History iron) tablet (Luz-Time) Allergies Allergy/AdvReac Type Severity Reaction Status Date / Time azithromycin [From Zithromax] Allergy Mild Rash Verified 07/04/23 02:40 egg Allergy Verified 07/04/23 02:40 Results Vital Signs Vital Signs: Last Vital Signs Pulse 81 07/04/23 05:14 BP 92/57 L 07/04/23 05:14 Weight: 67.404 kg Height: 152.4 cm Anesthesia Procedures Intrathecal Patient Location: OB Start Time: 04:50 Stop Time: 05:05 Start Date: 07/04/23 Stop Date: 07/04/23 Reason for Block: procedure for pain Patient Position: sitting Performed By: Sonny Tinajero Preanesthetic Checklist: IV checked, risks and benefits discussed, monitors and equipment checked, pre-op evaluation, timeout performed and anesthesia consent Prep: chlorhexidine gluconate Monitoring: blood pressure monitoring, continuous pulse oximetry and heart rate Approach: midline Vertebral Space: lumbar (1-5) Needle Type: Pencan Injection Technique: single-shot Needle gauge: 25 Needle Length (cm): 10 cm
[2023-07-04] MEDS: OXYTOCIN 30 unit/500 ML in NS 30 UNIT/500 ML BAG 300 UNIT IVPB (05:50)
--- NOTE | 2023-07-04 06:18 | W.PM.OBVAGDE ---
OB Procedure Vag Delivery Mother Details Mother Details: The patient is a 33 year-old, 2, Para 1, admitted on 07/04/23 at 39 0/7 Days gestation. : 2 Para: 2 Weeks Gestation: 39 Admission Date: 07/04/23 Additional Details Amniotic Membrane Status: AROM Amniotic Membrane Rupture Date: 07/04/23 Amniotic Membrane Rupture Time: 05:20 Amniotic Membrane Fluid Description: Clear Analgesia/Anesthesia Type: Intrathecal Waterbirth: No Pitcoin: No Intrapartal Events: None Labor Onset: 00:30 Complete: 05:20 Pushin:20 Heart: heart tones during second stage were category 2. Had one deceleration after intrathecal, was found a rim and AROM performed, moderate variability and accelerations noted with head stimulation. Delivery Details Delivery Date: 07/04/23 Delivery Time: 05:48 Route of delivery: Infant Gender: Male Infant Viability: Alive; Heart Rate Present Position at Delivery: OA Delivery Details: Delivered over intact perineum via spontaneous vaginal delivery. Infant was placed on maternal abdomen.? Cord was clamped and cut after a 30-60 second delay. Nose and mouth were bulb suctioned.? Infant weight pending. 1 Minute Interval Total Score: 8 5 Minute Interval Total Score: 9 Additional Details Shoulder Dystocia: No Placenta Delivery Time: 05:53 Placental Delivery Description: Spontaneous Delivery repair: Vicryl Procedure Done: Global Blood Loss: 200 Laceration: Perineal - 2nd Degree Episiotomy Description: None Blood Loss Measurement Type: QBL Bakri Used: No Sponge/Need Count Correct: Yes Cord Vessel Description: 3 Vessels Event Summary Status: Mother and were stable after delivery. Disposition: floor
[2023-07-04] MEDS: IBUPROFEN 600 MG TABLET PO ×3 (07:08→20:01)
[2023-07-04] MEDS: LIDOCAINE 1 % PF 30 ML INJECTION (07:10)
[2023-07-04] MEDS: ONDANSETRON 2 MG/ML inj 4 MG IV (13:32)
--- NOTE | 2023-07-04 13:54 | PM.ANPOST ---
Post Anesthesia Note Post Anesthesia Note Patient seen: Inpatient Respiratory Status: adequate Cardiovascular Status: adequate Mental Status: baseline Pain: adequate Temp: baseline Anesthetic awareness: N/A Complications: none Follow care: none
[2023-07-04] MEDS: ACETAMINOPHEN 500 MG TABLET 1000 MG PO ×2 (17:36→23:46)
[2023-07-04] MEDS: hydrOXYzine pamoate 25 MG CAPSULE 50 MG PO (20:55)
[2023-07-05 03:03] VITALS: BP 100/68; PULSE 94; RESP 18; O2SAT 97
[2023-07-05] MEDS: IBUPROFEN 600 MG TABLET PO (05:44)
[2023-07-05] MEDS: ACETAMINOPHEN 500 MG TABLET 1000 MG PO (07:47)
[2023-07-05] MEDS: DOCUSATE SODIUM 100 MG CAPSULE PO (07:47)
[2023-07-05 07:52] VITALS: BP 103/72; PULSE 72; RESP 16; TEMP 36.3; O2SAT 97
--- NOTE | 2023-07-05 10:14 | PM.OBDSVD1 ---
DS: Providers Provider Date Seen: 07/05/23 Date of admission: 07/04/23 02:54 Primary care physician: Not a Local Provider Admitting Clinician: Ananya Olguin MD Attending Physician on discharge: Dandy Birch CNM Date of Discharge: 07/05/23 DS: Diagnosis Discharge Diagnosis (1) care and examination immediately after delivery: Status: Acute Exam Narrative: Exam Narrative: VSS, afebrile GENERAL APPEARANCE: ?normal affect, alert, no distress MOOD: ?appropriate HEENT: normocephalic, neck supple, full ROM CHEST: ?Symmetrical chest wall movement. ?Normal respiratory effort. ?Clear to auscultation HEART: ?regular rate and rhythm ABDOMEN: ?soft, non-tender. Uterine fundus is firm, at Umbilicus, Midline and is appropriate for the stage of recovery. ?Bowel sounds present. PERINEUM: ?mild edema of the perineum, there is a 2nd degree laceration that is healing well. EXTREMITIES: ?normal and no edema Const: Vital Signs, click to edit/add: Vital Signs - 24 hr 07/04/23 13:36 07/04/23 17:37 07/04/23 20:00 Temperature 97.8 F 98.0 F Pulse Rate [Blood Pressure Cuff] 81 80 Respiratory Rate 16 16 18 Blood Pressure [Ri ght Arm] 110/70 125/81 Pulse Oximetry 96 96 96 Oxygen Delivery Me thod Room Air Room Air Room Air 07/04/23 23:39 07/05/23 03:03 07/05/23 07:52 Temperature 97.3 F L Pulse Rate [Blood Pressure Cuff] 81 94 72 Respiratory Rate 16 18 16 Blood Pressure [Ri ght Arm] 105/64 100/68 103/72 Pulse Oximetry 96 97 97 Oxygen Delivery Me thod Room Air Room Air Room Air Documenting provider has reviewed patient's vital signs: yes OB - DS: Summary Hospital Course Hospital Course: Beatriz is a 33 y.o. who was admitted to L & D for labor. ?She had an uncomplicated NVD.?The patient feels well. ?The pain is well controlled with current medications. ?She has no new complaints. ?She is formula feeding and reports things are going well.? the patient has done well.? Vitals have been stable.? She has remained afebrile.? Has a good appetite, is tolerating a general diet. ?She is voiding without difficulty.? She is passing gas and has not had a bowel movement.? She is ambulating and denies any dizziness.? Has Small amount of rubra lochia. ?She is planning condoms for prevention. Peripartum Data Infant delivery method: Vaginal Laceration description: Perineal - 2nd Degree complications: none Bandy Gender: Male Infant Discharge Plan: Home Status at Discharge Functional status at discharge: independent ambulation Overall status at discharge: patient is progressing back to baseline Time Spent with Patient Time attestation: Total time spent providing and/or coordinating discharge services: Time spent: Less than 30 minutes Discharge Plan Discharge Disposition: Home, Self-Care Date of Admission: 07/04/23 02:54 Attending Provider on Discharge: Dandy Birch Primary Care Provider: Provider,Not a Local Condition: Stable Anticipated Discharge Date/Time: 07/05/23 10:17 Discharge Medications: New acetaminophen 500 mg Tablet 1,000 mg PO Q6H PRNQty: 0 0RF docusate sodium 100 mg Capsule 100 mg PO DAILY Qty: 90 2RF ibuprofen 600 mg Tablet 600 mg PO Q6H PRNQty: 60 0RF Continued DHA 200 mg capsule 200 mg PO DAILY acetaminophen [Tylenol Extra Strength] 500 mg tablet 1,000 mg PO Q6H PRN omeprazole 20 mg capsule,delayed release(DR/EC) 20 mg PO QDAY Qty: 90 2RF Unisom (doxylamine) 25 mg tablet 25 mg PO QHS PRN cyclobenzaprine 5 mg tablet 5 mg PO TID PRN (Reason: muscle spasm) Qty: 20 1RF ondansetron 4 mg tablet,disintegrating 4 mg PO Q6H PRN (Reason: nausea and vomiting) Qty: 30 1RF Discontinued ferrous sulfate [Luz-Time] 325 mg (65 mg iron) tablet 325 mg PO QDAY Discharge Orders: Discharge Order (Routine); Ordered 07/05/23 Ordered By: Dandy Birch Patient Education: OB Over the Counter Medication Information, OB Vaginal/Bottle Feeding Activity Level: Activity as Tolerated Discharge Diet: Regular Follow Up Appointments: Provider,Not a Local [Primary Care Provider] - [facility] [Provider Group] Forms: [employer] Info Instructions
== END 2023-07-05 12:25 | disposition home or self-care (01) | DRG 807 ==
LOC: OB OUT 02:55 → OB 02:55
PROVIDERS: Admitting Provider Obstetrics & Gynecology; Visit Provider Obstetrics & Gynecology
DX: O70.1 Second degree perineal laceration during delivery (principal); Z37.0 Single live birth; Z3A.39 39 weeks gestation of pregnancy; K21.9 Gastro-esophageal reflux disease without esophagitis
CPT/HCPCS: 01967; 36415; 85018; A9270; J2001; J2371; J2405; J3010; J7120

== ENCOUNTER 2023-07-08 11:03 | Outpatient (CLI) | payer OTHER, SELFPAY | END 2023-07-08 11:04 | disposition home or self-care (01) | LOC: NFLDREF 07-20 11:51 | PROVIDERS: Visit Provider Obstetrics & Gynecology | DX: R39.9 Unspecified symptoms and signs involving the genitourinary system (principal) | CPT/HCPCS: 87086; 87186 ==

== ENCOUNTER 2023-07-20 10:13 | Outpatient (CLI) | payer OTHER, SELFPAY ==
--- NOTE | 2023-07-20 10:15 | US_ITS ---
Patient: MONSE BONDS Facility:?[facility] Patient ID:?[id number] Site Patient ID:?[id number]. Site :?1991 Study:?US-Extremity Right DVT-07/20/2023 10:53:56 AM Ordering Physician:MAGDY Final Report: INDICATION: Leg pain and swelling TECHNIQUE: Ultrasound venous duplex lower right extremity. Compression venous exam was performed using damon-scale, color Doppler, and spectral Doppler imaging. COMPARISON: None. FINDINGS: Sonographic imaging demonstrates the right common femoral, deep femoral, superficial femoral, popliteal, posterior tibial and greater saphenous and the contralateral left common femoral veins to be fully compressible with normal color Doppler blood flow. IMPRESSION: Normal right lower extremity venous ultrasound, no sign of deep venous thrombosis. Dictated by Lizandro Travis MD @ 07/20/2023 11:27:39 AM Signed by:?Lizandro Travis MD @07/20/2023 11:27:39 AM (Electronic Signature)
== END 2023-07-20 10:14 | disposition home or self-care (01) ==
LOC: US 10:14
PROVIDERS: Visit Provider Registered Nurse
DX: M79.661 Pain in right lower leg (principal); R22.41 Localized swelling, mass and lump, right lower limb
CPT/HCPCS: 93971

== ENCOUNTER 2023-08-02 11:09 | Outpatient (CLI) | payer OTHER, SELFPAY | END 2023-08-02 11:10 | disposition home or self-care (01) | LOC: NFLDREF 08-03 10:47 | PROVIDERS: Visit Provider Registered Nurse | DX: R30.0 Dysuria (principal) | CPT/HCPCS: 87086 ==

== ENCOUNTER 2024-02-28 14:34 | Outpatient (CLI) | payer OTHER, SELFPAY ==
--- OUTSIDE RECORDS SUMMARY | 2024-02-28 14:36 | XMS_ITS | Referral Summary ---
Author Organization [facility] Address [facility] [place] [address] Care Team Providers Care Service Agent Name Role Phone No Ref-Primary, Physician Primary Care Provider Thelma Veloz MD Unavailable [phone] Social History Tobacco Use Types Packs/Day [...] of Treatment Not on file Care Teams Service Agent Relationship Specialty Start Date End Date No Ref-Primary, Physician PCP - General 03/01/23 Thelma Veloz MD [address] [address] Assigned OBGYN Provider 03/12/23
--- OUTSIDE RECORDS SUMMARY | 2024-02-28 14:36 | XMS_ITS | Clinical Summary ---
Author Organization [facility] [place] Address [address] [place] [id number] Care Team Providers Care Psychosocial Rehabilitation Counselor Name Role Phone No Ref-Primary, Physician Primary Care Provider Thelma Veloz MD Unavailable [phone] Social History Tobacco Use Types Packs/Day [...] HM ORDERS 1991 YEARLY PREVENTIVE VISIT 1991 HIV SCREENING 2006 HEPATITIS C SCREENING 2009 PAP 2012 PHQ-2 (once per calendar year) 2023 COVID-19 Vaccine ( season) 2024 INFLUENZA VACCINE (#1) 2024 DTAP/TDAP/TD IMMUNIZATION (10 - Td or Tdap) 04/26/2033 04/26/2023, 05/25/2021, 05/08/2014, Additional history exists RSV VACCINE (1 - 1-dose 75+ series) 2066 HEPATITIS B IMMUNIZATION Completed 004, 01/23/2003, 12/18/2002 [...] age to complete this topic Care Teams Psychosocial Rehabilitation Counselor Relationship Specialty Start Date End Date No Ref-Primary, Physician PCP - General 03/01/23 Thelma Veloz MD [address] [place] [address] Assigned OBGYN Provider 03/12/23
[2024-02-28 18:26] LABS: Bacterial Vaginosis* Negative (Negative); Candida glab/krus DETECTED (No Detected); Candida species NOT DETECTED (No Detected); Trichomonas vaginalis NOT DETECTED (No Detected)
== END 2024-02-28 14:35 | disposition home or self-care (01) ==
PROVIDERS: Visit Provider Advanced Practice Midwife
DX: N89.8 Other specified noninflammatory disorders of vagina (principal); B37.31 Acute candidiasis of vulva and vagina
CPT/HCPCS: 81513; 87102; 87481; 87661

== ENCOUNTER 2024-11-08 09:11 | Outpatient (CLI) | payer OTHER, SELFPAY | END 2024-11-08 09:12 | disposition home or self-care (01) | PROVIDERS: Visit Provider Obstetrics & Gynecology | DX: N92.0 Excessive and frequent menstruation with regular cycle (principal); Z79.899 Other long term (current) drug therapy; Z13.6 Encounter for screening for cardiovascular disorders | CPT/HCPCS: 80053; 80061; 82306; 84443 ==